=== PATIENT | female | born 1960 | race Caucasian/White ===

== ENCOUNTER → 2016-06-02 | Outpatient (CLI) | payer BC ==
[~2016-06-02] MED LIST: CELEXA10 MG PO; CEPHALEXIN500 M1 PO; LEVOTHYROXINE PO; SYNTHROID0.075 MG/T PO
== END ==
LOC: MC.RAD 07:28
DX: D48.61 Neoplasm of uncertain behavior of right breast (principal); Z80.3 Family history of malignant neoplasm of breast

== ENCOUNTER → 2016-12-28 | Outpatient (CLI) | payer BC | LOC: MC.RAD 16:17 | DX: Z12.31 Encounter for screening mammogram for malignant neoplasm of breast (principal) ==

== ENCOUNTER → 2018-01-10 | Outpatient (CLI) | payer OTHER | LOC: MC.RAD 16:20 | DX: Z12.31 Encounter for screening mammogram for malignant neoplasm of breast (principal); Z98.890 Other specified postprocedural states ==

== ENCOUNTER → 2018-09-25 | Outpatient (CLI) | payer OTHER | LOC: COL.RAD 15:00 | DX: J32.9 Chronic sinusitis, unspecified (principal) ==

== ENCOUNTER → 2019-03-04 | Outpatient (CLI) | payer OTHER | LOC: MC.RAD 13:51 | DX: N63.20 Unspecified lump in the left breast, unspecified quadrant (principal) | CPT/HCPCS: G0279 ==

== ENCOUNTER → 2020-03-25 | Outpatient (CLI) | payer OTHER | LOC: MC.RAD 16:20 | DX: Z12.31 Encounter for screening mammogram for malignant neoplasm of breast (principal); Z98.82 Breast implant status ==

== ENCOUNTER → 2021-03-28 | Outpatient (CLI) | payer OTHER | LOC: MC.RAD 14:30 | DX: Z12.31 Encounter for screening mammogram for malignant neoplasm of breast (principal); Z98.82 Breast implant status ==

== ENCOUNTER → 2021-10-03 | Outpatient (CLI) | payer OTHER | LOC: COL.RAD 11:16 | DX: M50.322 Other cervical disc degeneration at C5-C6 level (principal); M48.02 Spinal stenosis, cervical region ==

== ENCOUNTER → 2022-05-11 | Outpatient (CLI) | payer OTHER | LOC: MC.RAD 16:46 | DX: Z12.31 Encounter for screening mammogram for malignant neoplasm of breast (principal) ==

== ENCOUNTER → 2023-05-24 | Outpatient (CLI) | payer OTHER | LOC: MC.RAD 16:41 | DX: Z12.31 Encounter for screening mammogram for malignant neoplasm of breast (principal) ==